=== PATIENT | female | born 1970 | race Native Hawaiian/Other Pacific Islander ===

== ENCOUNTER 2016-11-03 13:16 | Emergency (ER) | payer BC, OTHER ==
[~2016-11-03] VITALS: Ht 160 cm; Wt 49.9 kg
[2016-11-03] MEDS ORDERED: LEXAPRIL PO (13:39)
[2016-11-03] MEDS ORDERED: BUPR100T5 PO (13:39)
--- NOTE | 2016-11-03 13:51 | NUR ---
PT IS INROO #2A. DR BAXTER EVALUATED THE PT.
--- NOTE | 2016-11-03 13:55 | NUR ---
Patient was assisted to a bedpan. Patient had one large solid BM. Pippa-anal care provided.
[2016-11-03] MEDS ORDERED: LIDOCAINE HCL 1% 20 ML VIAL TP ONE (14:00)
[2016-11-03] MEDS ORDERED: TDAP DIPH,PERTUSS,TET VAC/PF 0.5 ML DISP.SYRIN IM ONE ×2 (14:00→14:06)
--- NOTE | 2016-11-03 14:06 | NUR ---
PT WAS D/C TO HOME. D/C INSTRUCTIONS GIVEN TO THE PT AND HER .
[2016-11-03 14:07] VITALS: BP 118/69
== END 2016-11-03 14:07 | disposition home or self-care (01) ==
LOC: ER 13:16
DX: S01.01XA Laceration without foreign body of scalp, initial encounter (principal); F32.9 Major depressive disorder, single episode, unspecified; K21.9 Gastro-esophageal reflux disease without esophagitis; Z88.2 Allergy status to sulfonamides; W18.41XA Slipping, tripping and stumbling without falling due to stepping on object, initial encounter; Y93.89 Activity, other specified; Y99.8 Other external cause status; Y92.89 Other specified places as the place of occurrence of the external cause
CPT/HCPCS: 12002; 90471; 90715; 99283; A4663; J3490